=== PATIENT | female | born 1990 | race Caucasian/White ===

== ENCOUNTER 2017-03-23 04:49 | Emergency (ER) | payer BC, OTHER ==
[~2017-03-23] VITALS: Ht 165.1 cm; Wt 86.2 kg
[2017-03-23] MEDS ORDERED: MICROGESTIN FE1 EAC1 PO (04:57)
[2017-03-23] MEDS ORDERED: ROBAXIN500 MG PO (06:18)
[2017-03-23] MEDS ORDERED: NAPROSYN500 MG PO (06:18)
[2017-03-23 06:27] VITALS: BP 129/77
== END 2017-03-23 06:00 | disposition home or self-care (01) ==
LOC: ER 04:49
DX: M62.831 Muscle spasm of calf (principal); I10 Essential (primary) hypertension